=== PATIENT | male | born 1985 | race Caucasian/White ===

== ENCOUNTER 2016-09-07 12:25 | Emergency (ER) | payer SELFPAY ==
--- NOTE | 2016-09-07 12:42 | UC ---
Respiratory Complaint HPI - HPI Summary HPI Summary: The patient comes in today for: 1. Return to work note: Onset: two days ago. Palliative/provocative: Nothing makes his symptoms better or worse. Quality: Nausea. Region: Whole body and GI. Severity: No pain at this time. Time: Constant. Associated symptoms: Event: He had two days ago, onset of headache, head pressure, nasal "drip," fever (temperature not taken), nausea and body aches. He took some time off from work. He was not seen. He states that he needs a return to work note. He states that he has some nausea, but it is getting better. He complained of having 3 stools a day and nausea which is getting better. He was coughing up phlegm at that time, but is better. He has positive yellow rhinitis. He states that he is ready to go back to work. * - History of Current Complaint Stated Complaint: RETURN TO WORK NOTE Time Seen by Provider: 09/07/16 12:33 - Allergies/Home Medications Allergies/Adverse Reactions: Allergies Allergy/AdvReac Type Severity Reaction Status Date / Time No Known Allergies Allergy Verified 09/04/15 17:43 PMH/Surg Hx/FS Hx/Imm Hx Previously Healthy: No Endocrine History Of: Denies: Diabetes, Thyroid Disease, Hyperthyroidism, Hypothyroidism, Dyslipidemia Cardiovascular History Of: Reports: Hypertension Denies: Cardiac Disorders, Pacemaker/ICD, Myocardial Infarction, Congestive Heart Failure, Atrial Fibrillation, Deep Vein Thrombosis, Bleeding Disorders Respiratory History Of: Reports: Asthma - Inhalers used in the past. He is a smoker except for the last two days. GI/ History Of: Denies: Gastroesophageal Reflux, Ulcer, Gastrointestinal Bleed, Gall Bladder Disease, Kidney Stones, Diverticulitis, Renal Disease, Urosepsis Neurological History Of: Denies: TIA, CVA, Dementia, Seizures, Migraine Psychological History Of: Reports: Anxiety, Post Traumatic Stress Disorder Denies: Depression, Bipolar Disorder, Schizophrenia Cancer History Of: Denies: Lung Cancer, Colorectal Cancer, Breast Cancer, Prostate Cancer, Cervical Cancer Other History Of: Negative For: HIV, Hepatitis B, Hepatitis C, Anticoagulant Therapy - Surgical History Surgical History: Yes Surgery Procedure, Year, and Place: T&A - Family History Known Family History: Positive: Hypertension Negative: Cardiac Disease - Social History Occupation: Employed Full-time Alcohol Use: None Substance Use Type: None Substance Use Comment - Amount & Last Used: marijuana occasional- last used a while ago Smoking Status (MU): Current Every Day Smoker Type: Cigarettes Amount Used/How Often: 1/2 pack daily Length of Time of Smoking/Using Tobacco: 17 Years Have You Smoked in the Last Year: Yes Household Exposure Type: Cigarettes - Immunization History Most Recent Influenza Vaccination: Not the 2014/2015 Season Review of Systems Constitutional: Negative Skin: Negative Eyes: Negative ENT: Negative Respiratory: Negative Cardiovascular: Negative Gastrointestinal: Negative Genitourinary: Negative All Other Systems Reviewed And Are Negative: Yes Physical Exam Triage Information Reviewed: Yes Appearance: Well-Appearing, No Pain Distress, Well-Nourished Vital Signs Reviewed: Yes Eyes: Positive: Conjunctiva Clear. Negative: Discharge ENT: Positive: Hearing grossly normal. Negative: Pharyngeal erythema, Nasal congestion, Nasal drainage, TM bulging, TM dull, TM red, Tonsillar swelling, Tonsillar exudate Dental: Negative: Gross Decay/Caries @, Dental Fracture @ Neck: Negative: Supple, Nontender, No Lymphadenopathy, Nuchal Rigidity Respiratory: Positive: Lungs clear, No respiratory distress, No accessory muscle use. Negative: Crackles, Wheezing Cardiovascular: Positive: RRR, No Murmur Abdomen Description: Positive: Nontender, No Organomegaly, Soft. 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 - Differential Dx/Diagnosis Differential Diagnosis/HQI/PQRI: Asthma, Sinusitis Provider Diagnoses: Viral syndrome. gastroenteritis. Upper respiratory infection. Discharge - Discharge Plan Condition: Stable Disposition: HOME Forms: *Work Release Referrals: ROSALBA Recinos [Primary Care Provider] - If Needed (Please follow up with your primary care provider as needed. If you dont' have a primary care provider, please reference the list of local primary care providers. If you get worse, please be seen again.) Additional Instructions: Patient is to follow up with his primary care provider as he or she has directed for care of his high blood pressure.
[2016-09-07 12:58] VITALS: BP 141/87
== END 2016-09-07 13:18 | disposition home or self-care (01) ==
LOC: UCCORT 12:25
DX: B34.9 Viral infection, unspecified (principal); K52.9 Noninfective gastroenteritis and colitis, unspecified; J06.9 Acute upper respiratory infection, unspecified; F17.210 Nicotine dependence, cigarettes, uncomplicated
CPT/HCPCS: 99211; G0463

== ENCOUNTER 2018-04-21 15:20 | Emergency (ER) | payer OTHER ==
[2018-04-21 15:40] VITALS: BP 146/88
--- NOTE | 2018-04-21 15:59 | UC ---
Respiratory Complaint HPI - HPI Summary HPI Summary: C/O cough, sore throat, headache, body aches, chills. Getting better. ? ready to go back to work. - History of Current Complaint Chief Complaint: UCGeneralIllness Stated Complaint: CHEST CONGESTION Time Seen by Provider: 04/21/18 15:45 Hx Obtained From: Patient Onset/Duration: Sudden Onset, Lasting Weeks - 1, but improving. Severity Initially: Moderate Severity Currently: Mild Pain Intensity: 0 Character: Cough: Productive Associated Signs And Symptoms: Positive: Fever, Chills, URI, Nasal Congestion. Negative: Dyspnea, Pleuritic Chest Pain, Wheezing, Hoarseness Related History: Seasonal Allergies - Allergies/Home Medications Allergies/Adverse Reactions: Allergies Allergy/AdvReac Type Severity Reaction Status Date / Time No Known Allergies Allergy Verified 09/07/16 12:57 PMH/Surg Hx/FS Hx/Imm Hx Cardiovascular History: Hypertension Other History Of: Negative For: HIV, Hepatitis B, Hepatitis C, Anticoagulant Therapy - Surgical History Surgical History: Yes Surgery Procedure, Year, and Place: T&A - Family History Known Family History: Positive: Hypertension Negative: Cardiac Disease, Diabetes - Social History Occupation: Employed Full-time Lives: With Family Alcohol Use: None Substance Use Type: None Substance Use Comment - Amount & Last Used: marijuana occasional- last used a while ago Smoking Status (MU): Current Every Day Smoker Type: Cigarettes Amount Used/How Often: 1/2 pack daily Length of Time of Smoking/Using Tobacco: 17 Years Have You Smoked in the Last Year: Yes Household Exposure Type: Cigarettes - Immunization History Most Recent Influenza Vaccination: Not the Season Review of Systems Constitutional: Chills ENT: Sore Throat, Nasal Discharge Respiratory: Cough Musculoskeletal: Myalgia Neurological: Headache Is Patient Immunocompromised?: No All Other Systems Reviewed And Are Negative: Yes Physical Exam Triage Information Reviewed: Yes Appearance: Well-Appearing, No Pain Distress, Well-Nourished Vital Signs: Initial Vital Signs Temp 97.5 F 04/21/18 15:34 Pulse 75 04/21/18 15:34 Resp 17 04/21/18 15:34 BP 146/88 04/21/18 15:34 Pulse Ox 98 04/21/18 15:34 Vital Signs Reviewed: Yes Eyes: Positive: Conjunctiva Clear ENT: Positive: Pharynx normal, TMs normal Respiratory Exam: Normal Respiratory: Positive: Wheezing - ? wheeze with cough Cardiovascular Exam: Normal Musculoskeletal Exam: Normal Neurological Exam: Normal Psychological Exam: Normal Skin Exam: Normal UC Diagnostic Evaluation - Laboratory O2 Sat by Pulse Oximetry: 98 Respiratory Course/Dx - Differential Dx/Diagnosis Differential Diagnosis/HQI/PQRI: Asthma, Lower Resp Infection, Sinusitis Provider Diagnoses: Acute URI. Acute bronchospasm Discharge - Sign-Out/Discharge Documenting (check all that apply): Patient Departure All imaging exams completed and their final reports reviewed: No Studies - Discharge Plan Condition: Stable Disposition: HOME Prescriptions: predniSONE TAB* [Deltasone 20 MG TAB*] 60 mg PO DAILY #18 tab Patient Education Materials: Upper Respiratory Infection (DC), Wheezing (ED), Prednisone (By mouth) Forms: *Work Release Referrals: ROSALBA Recinos [Primary Care Provider] - Additional Instructions: Smoking Cessation Tricks. 1. Cut down by 1 cigarette per day every 2-3 days. Write the number of smokes for that day on the calendar. 2. Identify triggers to smoking: after meals, on the phone, in the car, with coffee, on breaks at work, etc. 3. Formulate a plan with a behavior to replace the smoking. Fireballs in the car , doodle pad on the phone, flavored creamer for the coffee, go for a walk after a meal or on break at work. 4. For stress smokes do deep breathing relaxation. Breath deep in through the nose hold the breath in for a few seconds then breath out slowly through the mouth. Only start the prednisone if the wheezing cough gets worse. - Billing Disposition and Condition Condition: STABLE Disposition: Home
== END 2018-04-21 16:12 | disposition home or self-care (01) ==
LOC: UCCORT 15:20
DX: J06.9 Acute upper respiratory infection, unspecified (principal); J98.01 Acute bronchospasm; I10 Essential (primary) hypertension; F17.210 Nicotine dependence, cigarettes, uncomplicated
CPT/HCPCS: 99212; G0463